=== PATIENT | male | born 1970 | race Caucasian/White ===

== ENCOUNTER 2019-11-27 20:42 | Inpatient (IN) | payer MEDICARE, OTHER ==
[2019-11-28 17:11] VITALS: BP 109/71
[2019-11-28] MEDS ORDERED: GLUCAGON HCl 1 MG KIT IM PRN (20:28)
[2019-11-28] MEDS ORDERED: BLOOD SUGAR DIAGNOSTIC SCH (21:00)
[2019-11-28] MEDS ORDERED: INSULIN HUMAN REGULAR 100 UNIT/ML VIAL SUBQ SCH (21:00)
[2019-11-28] MEDS: INSULIN LISPRO SLIDING SCALE 100 UNITS/ML UNIT SUBQ SCH (21:01)
[2019-11-28] MEDS: Atorvastatin Calcium 10 MG TAB PO SCH (21:22)
[2019-11-29] MEDS: INSULIN LISPRO SLIDING SCALE 100 UNITS/ML UNIT SUBQ SCH ×4 (07:00→21:03)
[2019-11-29] MEDS: Diltiazem CD 180 mg C24 PO SCH (08:24)
[2019-11-29] MEDS: Apixaban 5 MG TABLET PO SCH ×2 (08:24→16:30)
[2019-11-29] MEDS ORDERED: Fenofibrate, Micronized 134 mg Cap PO SCH (09:00)
[2019-11-29] MEDS ORDERED: Apixaban 5 MG TABLET PO SCH (09:00)
[2019-11-29] MEDS ORDERED: CHLORPROMAZINE PO SCH (09:00)
[2019-11-29] MEDS ORDERED: Diltiazem CD 180 mg C24 PO SCH (09:00)
[2019-11-29] MEDS: Fenofibrate, Micronized 134 mg Cap PO SCH (09:22)
--- NOTE | 2019-11-29 15:19 | History and Physical ---
History of Present Illness - HPI Chief Complaint: Suicidal Thoughts HPI: Admitted from [facility]. Diagnosed with Schizoaffective Disorder. Vital Signs: Last Vital Signs Temp 96.8 F 11/29/19 14:00 Pulse 95 11/29/19 14:00 Resp 18 11/29/19 14:00 BP 112/71 11/29/19 14:00 Pulse Ox 100 11/29/19 14:00 Past Medical History Cardiovascular: Report: CAD, HTN Pulmonary: Report: No Pertinent Hx TRAINING CONSULTANT: Report: CVA, Peripheral neuropathy GI: Report: Peptic Ulcer Psych: Report: Depression, Schizophrenia Musculoskeletal: Report: Weakness Rheumatologic: Report: No pertinent Hx Infectious Disease: Report: No Pertinent Hx Renal/: Report: No Pertinent Hx Endocrine: Report: Diabetes Dermatology: Report: No Pertinent Hx - Past Surgical History Past Surgical History: Appendectomy, Hernia Repair Family Medical History - Family Member Daughter History Unknown: Yes Ethnicity: Non- Living Status: Still Living Hx Family Cancer: No Hx Family Coronary Artery Disease: Yes (Father) Hx Family Congestive Heart Failure: No Hx Family Hypertension: No Hx Family Stroke: No Hx Family Diabetes: No Hx Family Seizures: No Hx Family Dementia: No Hx Family AIDS: No Hx Family HIV: No Hx Family COPD: No Hx Family Hepatitis: No Hx Family Psychiatric Problems: No Hx Family Tuberculosis: No Social History Smoke: Quit Alcohol: Other (Quit) Drugs: None Lives: With Family - Medications Home Medications: Home Medication Medication Instructions Recorded Type Apixaban [Eliquis] 5 mg PO BID 11/28/19 History Atorvastatin Calcium [Lipitor] 20 mg PO HS 11/28/19 History Blood Sugar Diagnostic [Blood 1 strip .[facility] 11/28/19 History Glucose Test Strip] Diltiazem CD [Cardizem Cd] 180 mg PO DAILY 11/28/19 History Docusate Sodium [Colace] 100 mg PO BID 11/28/19 History Fenofibrate, Micronized [Tricor] 145 mg PO DAILY 11/28/19 History Gabapentin [Neurontin*] 300 mg PO BID 11/28/19 History Insulin Human Regular [humuLIN R] 3 units [facility] 11/28/19 History Sucralfate [Carafate] 1 gm PO TID 11/28/19 History chlorproMAZINE [Thorazine] 75 mg PO BID 11/28/19 History traZODone HCl [Desyrel*] 2 mg PO HS 11/28/19 History - Allergies Allergies/Adverse Reactions: Allergies Allergy/AdvReac Type Severity Reaction Status Date / Time acetaminophen [From [place]] Allergy Unverified 11/28/19 17:20 dapagliflozin [From Farxiga] Allergy Unverified 11/28/19 17:20 divalproex sodium Allergy Unverified 11/28/19 17:20 [From Depakote] hydrocodone [From [place]] Allergy Unverified 11/28/19 17:20 risperidone [From Risperdal] Allergy Unverified 11/28/19 17:20 tramadol Allergy Unverified 11/28/19 17:20 canagliflozin [From Invokana] AdvReac Unverified 11/28/19 17:20 codeine AdvReac Unverified 11/28/19 17:20 morphine AdvReac Unverified 11/28/19 17:20 pioglitazone [From Actos] AdvReac Unverified 11/28/19 17:20 Review of Systems - Review of Systems Constitutional: Report: No Significant Eyes: Report: Pain ENT: Report: No Significant Respiratory: Report: No Significant Cardiovascular: Report: No Significant Gastrointestinal: Report: Nausea, Abdominal Pain Genitourinary: Report: No Significant Musculoskeletal: Report: No Significant Skin: Report: No Significant Neurological: Report: Weakness Physical Exam - Physical Exam HEENT: Report: Ears Nose Throat within normal limits Neck: Report: Within normal limits Cardiovascular Systems: Report: Regular, Rate and Rhythm, no murmurs noted Respiratory: Report: Clear to Auscultation of lung watkins, Breath Sounds are within normal limits Abdomen: Report: Tender to palpation (Epigastric) Back: Report: Inspection of back is within normal limits. Extremities: Report: Non-tender to palpation., Patient had full range of motion , No pedal edema was noted on inspection Skin: Report: Color of skin is within normal limits, Warm, Dry, No Rashes noted of the skin Neuro/Psych: Report: A+Ox3, CN II-XII intact, Weakness or sensory loss noted. - Lab Results All Lab Results last 24 hours: Laboratory Results - last 24 hr 11/28/19 11/29/19 16:43 06:36 POC Glucose 140 H 163 H - Assessment Assessment: * Scizoaffective Disorder * DM * HTN * Anemia * Hyperlipidemia * PE * Left Sided Weakness * Nausea * PUD - Plan Plan: * Continue medications from [place] * Psych Consult * Obtain labs * Zodelfino babcock nausea Cranial Nerve Assessment - CRANIAL NERVES alcohol swab:: Yes Distinguishes movements in peripheral field.:: Yes up, down, sideways:: Yes on forehead, cheeks and chin, chews symmetrically:: Yes FACIAL VII: upper: Frowns Symmetrically:: Yes FACIAL VII: Lower: Smiles Symmetrically:: Yes both ears:: Yes GLOSS-PHARYNGEAL IX: Has gag reflex:: Yes VAGUS X: Can make guttural sounds:: Yes ACCESSORY XI: Shrugs shoulders symmetrically:: Yes tremors or fasciculation's:: Yes - MOTOR spasticity, cogwheel, atrophy, tremor, asterixis, other: Yes (Decreased strength LUE/LLE) - COORDINATION Finger to nose, heel to rosenberg, BAO, gait, Romberg: No (Finger to nose normal, Gait unstable) - SENSORY signs, Brudzinski, Kernig, neck rigidity:: No (Sensoary intact) - REFLEXES Brachioradials Right:: Yes Brachioradials Left:: Yes Biceps Right:: Yes Biceps Left:: Yes Triceps Right:: Yes Triceps Left:: Yes Knee Right:: Yes Knee Left:: Yes Ankle Right:: Yes Ankle Left:: Yes Babinski Right:: No Babinski Left:: No
[2019-11-29] MEDS: Atorvastatin Calcium 10 MG TAB PO SCH (21:03)
[2019-11-30] MEDS ORDERED: Lactulose 10 Gm/15 mL 30mL UDC PO SCH (03:00)
[2019-11-30] MEDS: INSULIN LISPRO SLIDING SCALE 100 UNITS/ML UNIT SUBQ SCH ×4 (06:39→21:10)
[2019-11-30] MEDS: Fenofibrate, Micronized 134 mg Cap PO SCH (09:09)
[2019-11-30] MEDS: Diltiazem CD 180 mg C24 PO SCH (09:09)
[2019-11-30] MEDS: Apixaban 5 MG TABLET PO SCH ×2 (09:09→16:54)
[2019-11-30] MEDS: Lactulose 10 Gm/15 mL 30mL UDC PO SCH (09:10)
--- NOTE | 2019-11-30 20:24 | Progress Notes ---
DATE: 11/30/2019 SUBJECTIVE: The patient reports poor efficacy in the past with Thorazine. The patient reports greater efficacy on Seroquel. He continues to report ongoing severe depression, sadness, anxiety, panic attacks. MENTAL STATUS EXAMINATION: Depressed, melancholic, suicidal. ASSESSMENT AND PLAN: Schizoaffective disorder. We will discontinue the Thorazine, increase Seroquel to 100 mg per the returning physician, may consider augmenting with antidepressant. [facility]# [id number]
[2019-11-30] MEDS: Atorvastatin Calcium 10 MG TAB PO SCH (21:10)
--- NOTE | 2019-12-01 05:23 | Consultation ---
DATE OF CONSULTATION: 11/29/2019 CHIEF COMPLAINT: Manic racing thoughts. HISTORY OF PRESENT ILLNESS: A 49-year-old male with history of schizoaffective disorder, reports noncompliance with medications, suicidal ideation, racing thoughts, poor sleep. He wants to kill himself. PAST PSYCHIATRIC HISTORY: Schizoaffective disorder. PAST MEDICAL HISTORY: Type 2 diabetes, CVA 2 years ago, hypertension, coronary spasm. PAST SURGICAL HISTORY: Appendectomy, hernia. HOME MEDICATIONS: The patient reports benazepril, gabapentin, olanzapine, although poor compliance. ALLERGY TO MEDICATIONS: Reviewed. The patient reports history of allergies with ZYPREXA. Allergies also include CODEINE, DEPAKOTE, HYDROCODONE, MORPHINE, RISPERIDONE. SIGNIFICANT FAMILY PSYCHIATRIC HISTORY: Denied. LEGAL HISTORY: Denied. SOCIAL HISTORY: Denies any alcohol, illicit drug use. Currently living in a correction. MENTAL STATUS EXAMINATION: Sad, withdrawn, depressed, melancholic with suicidal ideation, racing thoughts, flight of ideas with suicidal ideation to hurt himself. Poor insight, poor judgment, poor impulse control. ASSESSMENT AND PLAN: Schizoaffective, bipolar type, distraught, would initiate Seroquel and titrate medications as tolerated. PRIMARY DIAGNOSIS: Schizoaffective disorder. SECONDARY DIAGNOSIS: None. MEDICAL DIAGNOSIS: Per medical team. We will consolidate medications to Seroquel and titrate as needed. ESTIMATED STAY: 5-10 days. STRENGTHS: Motivated. WEAKNESSES: Poor coping skills. [facility]# [id number]
[2019-12-01] MEDS: INSULIN LISPRO SLIDING SCALE 100 UNITS/ML UNIT SUBQ SCH ×4 (06:53→22:49)
[2019-12-01] MEDS: Fenofibrate, Micronized 134 mg Cap PO SCH (08:58)
[2019-12-01] MEDS: Escitalopram Oxalate 5 mg Tab PO SCH (08:58)
[2019-12-01] MEDS: Diltiazem CD 180 mg C24 PO SCH (08:58)
[2019-12-01] MEDS: Apixaban 5 MG TABLET PO SCH ×2 (08:59→17:56)
[2019-12-01] MEDS: Lactulose 10 Gm/15 mL 30mL UDC PO SCH (09:41)
--- NOTE | 2019-12-01 21:46 | Progress Notes ---
DATE: SUBJECTIVE: Chart reviewed and the patient interviewed. Also discussed the patient's condition with the staff and reviewed records and labs. The patient is still depressed and still in irritable mood. "I need more medication." He is still having episodes of yelling in front of the nurses' station and he is still easily agitated and easily irritable. The patient also is still seems to be suspicious. The patient is also focused on his medical problems. Also, complaining of panic attacks. Otherwise, the patient has continued to take his psych medications. The patient also today said that he is depressed and he is feeling hopeless. The patient's gait is steady. Vital signs are stable and no new labs available for review. MENTAL STATUS EXAMINATION: Anxious. Sad affect. Depressed mood. Thought processes are circumstantial, but no flight of ideas. He denies any hallucinations, but seems to be suspicious and paranoid. He denies suicidal or homicidal ideations, but feeling lack of energy and hopeless. ASSESSMENT: The patient still has periods of irritability, but also seems to be depressed. TREATMENT PLAN: We will continue Seroquel 100 mg at bedtime, trazodone 100 mg at bedtime. We will add Lexapro 5 mg every morning to help with his depression as well as his irritability that might be coming from his depression. Also, continue to work on his ineffective coping and poor impulse control. ESTIMATED LENGTH OF STAY: 3-5 days. REASON FOR CONTINUED HOSPITAL STAY: The patient is still agitated and in irritable mood as well as depressed and needs adjustment to his medications. [facility]# [id number]
[2019-12-01] MEDS: Atorvastatin Calcium 10 MG TAB PO SCH (22:49)
[2019-12-02] MEDS: INSULIN LISPRO SLIDING SCALE 100 UNITS/ML UNIT SUBQ SCH ×4 (06:42→21:00)
[2019-12-02] MEDS: Lactulose 10 Gm/15 mL 30mL UDC PO SCH (08:33)
[2019-12-02] MEDS: Diltiazem CD 180 mg C24 PO SCH (08:34)
[2019-12-02] MEDS: Apixaban 5 MG TABLET PO SCH ×2 (08:34→16:38)
[2019-12-02] MEDS: Escitalopram Oxalate 5 mg Tab PO SCH (08:34)
[2019-12-02] MEDS: Fenofibrate, Micronized 134 mg Cap PO SCH (08:34)
--- NOTE | 2019-12-02 16:33 | Progress Notes ---
DATE: SUBJECTIVE: The patient was complaining of chest pain and the patient was sent to [facility] and he was medically cleared after he was given some unknown pain medications. The patient still has multiple somatic complaints and is still easily irritable and agitated for taking more medications. The patient also is still complaining of panic attack and focus on more of medical issues and medical problems. Otherwise, the patient is compliant with taking his medications. The patient has history of alcoholism and drug issues. MENTAL STATUS EXAMINATION: Anxious. Cooperative. Thought processes mainly goal directed. The patient denies any hallucinations or delusions. He denies any suicidal or homicidal ideations. ASSESSMENT: The patient is still histrionic and still has issues with addiction and it seemed that he is medication seeking. TREATMENT PLAN: Continue to monitor his behavior and his condition closely. Also, continue adjusting psychotropic medications. Also, we will add Lexapro 5 mg every day and we will continue to follow up closely. Also, working on his possible drug dependence. ESTIMATED LENGTH OF STAY: 3-5 days. REASON FOR CONTINUED HOSPITAL STAY: The patient is still depressed and still needs to work on his possible addiction. JOB# [id number]
[2019-12-02] MEDS: Atorvastatin Calcium 10 MG TAB PO SCH (21:00)
--- NOTE | 2019-12-03 06:24 | Progress Notes ---
DATE: SUBJECTIVE: Chart reviewed and discussed the patient's condition with the staff and reviewed records and labs. The patient was sent to [facility] again for the second night on the row, but at this time complaining of abdominal pain. The patient is still med seeking and he still has somatic complaint in order to get opiates. I discussed that with the staff and discussed the importance of not giving him opiates and not transferring him to the hospital because that is what he is doing in order to get his opiates. Otherwise, no reports of suicidality and the patient continued to take Seroquel and trazodone and I added Lexapro with no side effects. ASSESSMENT: The patient is still depressed and medication seeking. TREATMENT PLAN: Continue to monitor behavior and condition closely. Also, continue to work on his pain seeking medications and followup. JOB# [id number]
== END 2019-12-02 19:00 | disposition short-term general hospital (02) | DRG 885 ==
LOC: GERO 11-28 15:54
PROVIDERS: ADMIT Psychiatry & Neurology Psychiatry; ATTEND Psychiatry & Neurology Psychiatry
DX: F25.9 Schizoaffective disorder, unspecified (principal); I10 Essential (primary) hypertension; I25.10 Atherosclerotic heart disease of native coronary artery without angina pectoris; G62.9 Polyneuropathy, unspecified; Z90.49 Acquired absence of other specified parts of digestive tract; Z82.49 Family history of ischemic heart disease and other diseases of the circulatory system; Z87.11 Personal history of peptic ulcer disease; Z88.5 Allergy status to narcotic agent; Z88.8 Allergy status to other drugs, medicaments and biological substances
CPT/HCPCS: 36415-UA; 82565-TC; 82948-90; 83036-90; G0410; Q0162; Z7610